=== PATIENT | male | born 1940 | race Caucasian/White ===

== ENCOUNTER 2017-01-18 12:17 | Emergency (ER) | payer MEDICARE ==
[2017-01-18] MEDS ORDERED: K-TA10TA2 PO (13:01)
[2017-01-18] MEDS ORDERED: RAMI5CA PO (13:01)
[2017-01-18] MEDS ORDERED: MULT1TAB18 PO (13:01)
[2017-01-18] MEDS ORDERED: CALC600T10 PO (13:01)
[2017-01-18] MEDS ORDERED: PRAV1TAB39 PO (13:01)
[2017-01-18] MEDS ORDERED: AMBI5TAB PO (13:01)
[2017-01-18] MEDS ORDERED: FLOM5CAP PO (13:01)
[2017-01-18] MEDS ORDERED: COUM7.5T PO (13:01)
[2017-01-18] MEDS ORDERED: PIOG15TA7 PO (13:01)
== END 2017-01-18 14:17 | disposition expired ==
LOC: EDBD 12:17 → M ED 12:50
DX: I46.9 Cardiac arrest, cause unspecified (principal); I10 Essential (primary) hypertension; E11.9 Type 2 diabetes mellitus without complications; N40.0 Benign prostatic hyperplasia without lower urinary tract symptoms; Z79.01 Long term (current) use of anticoagulants; Z79.899 Other long term (current) drug therapy; Z88.0 Allergy status to penicillin; Z88.1 Allergy status to other antibiotic agents; Z88.8 Allergy status to other drugs, medicaments and biological substances

== ENCOUNTER → 2017-01-19 | Outpatient (REF) ==
[~2017-01-19] MED LIST: AMBI5TAB PO; CALC600T10 PO; COUM7.5T PO; FLOM5CAP PO; K-TA10TA2 PO; MULT1TAB18 PO; PIOG15TA7 PO; PRAV1TAB39 PO; RAMI5CA PO
== END ==
LOC: M LAB 12:20
DX: Z02.89 Encounter for other administrative examinations (principal)